=== PATIENT | female | born 1960 | race Caucasian/White ===

== ENCOUNTER 2016-12-20 09:27 | Day surgery (SDC) | payer OTHER ==
[2016-12-14 13:00] VITALS: BMI 29.2
[2016-12-20] MEDS ORDERED: PROPOFOL 20 ML ONE (09:51)
[2016-12-20 10:12] VITALS: TEMP 98.2
[2016-12-20 12:34] VITALS: BP 106/62; PULSE 54
--- NOTE | 2016-12-21 16:12 | PATH ---
Surgical Pathology Report Patient Name: BHAVIN SCHULER [facility]. Rec. #: [id number] /Age/Gender: 1960 (Age: 56) / F Account: [id number] Location: [facility]-ENDOSCOPY Taken: 12/20/2016 Received: 12/20/2016 Reported: 12/21/2016 Physicians: Theresa Tavarez M.D. Specimen(s) Received A: SECOND PORTION SMALL BOWEL B: BX ANTRUM C: BX GE JUNCTION Clinical History GERD, rule out colon cancer Gastritis, rule out celiac, rule out GERD Final Diagnosis A. SECOND PORTION SMALL BOWEL, BIOPSY: DUODENAL MUCOSA WITH NO PATHOLOGIC FINDINGS. Note: Features suggestive of celiac disease are not identified in this biopsy. B. ANTRUM, BIOPSY: MILD CHRONIC GASTRITIS. IMMUNOSTAIN IS NEGATIVE FOR H. PYLORI ORGANISMS. C. GE JUNCTION, BIOPSY: GASTROESOPHAGEAL (SQUAMOCOLUMNAR) MUCOSA SHOWING MODERATE CHRONIC INFLAMMATION. NEGATIVE FOR INTESTINAL METAPLASIA. Electronically Signed Eusebia Arndt M.D. Gross Description A. Received in formalin, labeled "second portion of small bowel" is a obrien, irregular portion of soft tissue measuring 0.4 cm. in greatest dimension. The specimen is submitted in toto in one cassette. B. Received in formalin, labeled "antrum" is a obrien, irregular portion of soft tissue measuring 0.3 cm. in greatest dimension. The specimen is submitted in toto in one cassette. C. Received in formalin, labeled "GE junction" is a obrien, irregular portion of soft tissue measuring 0.3 cm. in greatest dimension. The specimen is submitted in toto in one cassette. 12/20/2016 [facility]12/20/2016
== END 2016-12-20 12:30 | disposition home or self-care (01) ==
LOC: FASU-ENDO 09:27
PROVIDERS: ATTEND Internal Medicine Gastroenterology
PROC: 0DB68ZX Excision of Stomach, Via Natural or Artificial Opening Endoscopic, Diagnostic (ICD-10-PCS; 2016-12-20)
PROC: 0DB48ZX Excision of Esophagogastric Junction, Via Natural or Artificial Opening Endoscopic, Diagnostic (ICD-10-PCS; 2016-12-20)
PROC: 0DJD8ZZ Inspection of Lower Intestinal Tract, Via Natural or Artificial Opening Endoscopic (ICD-10-PCS; principal; 2016-12-20 11:22)
PROC: 0DB98ZX Excision of Duodenum, Via Natural or Artificial Opening Endoscopic, Diagnostic (ICD-10-PCS; 2016-12-20 11:22)
DX: Z12.11 Encounter for screening for malignant neoplasm of colon (principal); K29.50 Unspecified chronic gastritis without bleeding; K25.9 Gastric ulcer, unspecified as acute or chronic, without hemorrhage or perforation
CPT/HCPCS: 88305-TC; 88342-TC

== ENCOUNTER 2017-03-14 09:40 | Day surgery (SDC) | payer OTHER ==
[2017-03-07 12:31] VITALS: BMI 29.2
[2017-03-14] MEDS ORDERED: PROPOFOL 20 ML ONE (10:09)
[2017-03-14 10:14] VITALS: TEMP 98
[2017-03-14 11:51] VITALS: BP 104/67; PULSE 53
--- NOTE | 2017-03-16 17:37 | PATH ---
Surgical Pathology Report Patient Name: BHAVIN SCHULER [facility]. Rec. #: [id number] /Age/Gender: 1960 (Age: 56) / F Account: [id number] Location: [facility]-ENDOS[facility] Taken: 03/14/2017 Received: 03/14/2017 Reported: 03/16/2017 Physicians: Theresa Tavarez M.D. Specimen(s) Received BX ANTRUM Clinical History Preoperative diagnosis: Peptic ulcer disease Postoperative diagnosis: Gastritis Final Diagnosis ANTRUM, BIOPSY: MILD CHRONIC GASTRITIS. IMMUNOSTAIN IS NEGATIVE FOR H. PYLORI ORGANISMS. Electronically Signed Eusebia Arndt M.D. Gross Description Received in formalin, labeled "antrum" are 2 obrien, irregular portions of soft tissue averaging 0.3 cm. in greatest dimension. The specimens are submitted in toto in one cassette. 03/15/201703/15/2017
== END 2017-03-14 12:00 | disposition home or self-care (01) ==
LOC: FASU-ENDO 09:40
PROVIDERS: ATTEND Internal Medicine Gastroenterology
PROC: 0DB68ZX Excision of Stomach, Via Natural or Artificial Opening Endoscopic, Diagnostic (ICD-10-PCS; principal; 2017-03-14 11:12)
DX: K31.9 Disease of stomach and duodenum, unspecified (principal); K44.9 Diaphragmatic hernia without obstruction or gangrene
CPT/HCPCS: 88305-TC; 88342-TC